=== PATIENT | male | born 1955 | race Caucasian/White ===

== ENCOUNTER 2024-04-04 06:16 | Day surgery (SDC) | payer MEDICARE, OTHER, SELFPAY ==
[2024-04-04 08:00] VITALS: BMI 45.3
[2024-04-04 08:19] LABS: Glucose - Point of Care 191 mg/dl (70-99)
[2024-04-04 08:24] VITALS: BMI 45.3
[2024-04-04 08:30] VITALS: BP 157/84
[2024-04-04 11:11] VITALS: BP 106/63
[2024-04-04 11:15] VITALS: BP 112/70
[2024-04-04 11:20] LABS: Glucose - Point of Care 240 mg/dl (70-99)
[2024-04-04 11:30] VITALS: BP 119/78
== END 2024-04-04 11:45 | disposition home or self-care (01) ==
LOC: SDS 06:16
PROVIDERS: ATTENDING PHYSICIAN Internal Medicine Gastroenterology
DX: D12.2 Benign neoplasm of ascending colon (principal); D12.3 Benign neoplasm of transverse colon; K64.0 First degree hemorrhoids
CPT/HCPCS: 45390; 45385; 88305; 82962

== ENCOUNTER → 2024-07-24 09:01 | Day surgery (SDC) | payer MEDICARE, OTHER, SELFPAY ==
[2024-07-24 11:10] LABS: Hematocrit 43.6 % (39.0-52.0); Hemoglobin 14.5 g/dL (13.0-18.0); Mean Corp Hgb Conc. 33.3 g/dL (33.0-37.0); Mean Corpuscular Hgb 29.6 pg (27.0-31.0); Mean Platelet Volume 12.2 fL (7.4-10.4); Platelet Count 255 10^3/uL (130-400); Red Cell Dist. Width 13.5 % (11.5-14.5); White Blood Cell Count 13.3 10^3/uL (4.8-10.8)
== END ==
LOC: SDSPAT 09:01
PROVIDERS: ATTENDING PHYSICIAN Orthopaedic Surgery Hand Surgery; FAMILY PHYSICIAN Internal Medicine
DX: Z01.810 Encounter for preprocedural cardiovascular examination (principal); Z01.812 Encounter for preprocedural laboratory examination
CPT/HCPCS: 93005; 36415; 85027

== ENCOUNTER 2024-09-11 06:24 | Day surgery (SDC) | payer MEDICARE, OTHER, SELFPAY ==
[2024-09-11 13:37] VITALS: BMI 44.2
[2024-09-11 13:46] LABS: Glucose - Point of Care 146 mg/dl (70-99)
[2024-09-11 13:54] VITALS: BMI 44.2
[2024-09-11 13:56] VITALS: BP 144/82
[2024-09-11 15:57] LABS: Glucose - Point of Care 124 mg/dl (70-99)
[2024-09-11 16:48] VITALS: BP 105/65
[2024-09-11 17:00] VITALS: BP 108/66
[2024-09-11 17:15] VITALS: BP 115/64
== END 2024-09-11 17:30 | disposition home or self-care (01) ==
LOC: SDS 06:24
PROVIDERS: ATTENDING PHYSICIAN Surgery
DX: Z12.11 Encounter for screening for malignant neoplasm of colon (principal); Z86.0100 Personal history of colon polyps, unspecified
CPT/HCPCS: G0105; 82962

== ENCOUNTER → 2024-11-01 08:21 | Outpatient (REF) | payer MEDICARE, OTHER, SELFPAY | LOC: RCS 08:21 | PROVIDERS: ATTENDING PHYSICIAN Internal Medicine; FAMILY PHYSICIAN Internal Medicine | DX: I25.10 Atherosclerotic heart disease of native coronary artery without angina pectoris (principal); I35.0 Nonrheumatic aortic (valve) stenosis; I35.1 Nonrheumatic aortic (valve) insufficiency | CPT/HCPCS: 93306; Q9950 ==